=== PATIENT | female | born 1995 | race Caucasian/White ===

== ENCOUNTER 2017-09-26 20:10 | Emergency (ER) | payer OTHER, MEDICAID ==
[2017-09-27] MEDS: TETRACAINE 0.5% 4 ML OPH LEFT EYE (01:15)
[2017-09-27] MEDS: FLUORESCEIN STRIP LEFT EYE (01:15)
== END 2017-09-27 02:15 | disposition home or self-care (01) ==
LOC: FTE 20:10
DX: T20.10XA Burn of first degree of head, face, and neck, unspecified site, initial encounter (principal); T21.11XA Burn of first degree of chest wall, initial encounter; X10.2XXA Contact with fats and cooking oils, initial encounter; Y92.9 Unspecified place or not applicable
CPT/HCPCS: 99283; Z7502

== ENCOUNTER 2017-10-21 08:59 | Emergency (ER) | payer OTHER | END 2017-10-21 10:26 | disposition home or self-care (01) | LOC: E/R 08:59 | DX: J20.9 Acute bronchitis, unspecified (principal) | CPT/HCPCS: 99284; Z7502 ==